=== PATIENT | female | born 1975 | race Caucasian/White ===

== ENCOUNTER 2020-06-28 12:00 | Emergency (ER) | payer OTHER ==
[~2020-06-28] VITALS: Ht 154.9 cm; Wt 77.1 kg
[2020-06-28] MEDS ORDERED: PAXIL40 MG PO (12:14)
[2020-06-28] MEDS ORDERED: FLEXERIL PO (13:51)
[2020-06-28] MEDS ORDERED: NORCO 5-325 TA1 EAC2 PO (13:51)
[2020-06-28] MEDS ORDERED: PREDNISONE 20 M20 MG PO (13:51)
[2020-06-28] MEDS ORDERED: PAXIL 20 MG TAB20 M1 PO (13:51)
[2020-06-28 14:07] VITALS: BP 125/71
== END 2020-06-28 14:08 | disposition home or self-care (01) ==
LOC: M.ERS 12:00
DX: M25.521 Pain in right elbow (principal); M25.511 Pain in right shoulder; Z76.0 Encounter for issue of repeat prescription; F17.210 Nicotine dependence, cigarettes, uncomplicated